=== PATIENT | male | born 1990 | race Caucasian/White ===

== ENCOUNTER 2018-07-20 01:22 | Emergency (ER) | payer OTHER ==
[~2018-07-20] VITALS: Ht 175.3 cm; Wt 72.0 kg
[2018-07-20] MEDS ORDERED: normal saline 1000ML IV soln IVB ONE ×3 (01:25→02:55)
[2018-07-20] MEDS ORDERED: diphenhydrAMINE 50 mg/ml inj IV ONE (01:25)
[2018-07-20] MEDS ORDERED: LORazepam 2 mg/ml vial IV ONE (01:25)
[2018-07-20] MEDS ORDERED: metoclopramide 5 mg/ml inj IV ONE (01:25)
[2018-07-20 02:07] LABS: BASOPHILS % (AUTO) 0.2 % (0-1); EOSINOPHILS % (AUTO) 0 % (0-6); HEMATOCRIT 44.9 % (42.0-52.0); HEMOGLOBIN 15.5 g/dl (14.0-17.9); LYMPHOCYTES # (AUTO) 1.8 X10'3 (1.1-4.8); LYMPHOCYTES % (AUTO) 10.5 % (21-51); MEAN CORPUSCULAR HEMOGLOBIN 30.7 PG (27.0-31.0); MEAN CORPUSCULAR HGB CONC 34.5 g/dL (33.0-36.5); MEAN CORPUSCULAR VOLUME 89.1 FL (78-98); MEAN PLATELET VOLUME 9.1 FL (7.4-10.4); MONOCYTES # (AUTO) 0.9 X10'3 (0-0.9); MONOCYTES % (AUTO) 5.3 % (2-12); NEUTROPHILS # (AUTO) 14.2 X10'3 (1.8-7.7); PLATELET COUNT 240 X10'3 (140-440); RED BLOOD COUNT 5.04 X10'6 (4.70-6.10); RED CELL DISTRIBUTION WIDTH 13.4 % (11.5-14.5)
[2018-07-20 02:18] LABS: ALANINE AMINOTRANSFERASE 33 U/L (12-78); ALBUMIN 5.1 G/DL (3.4-5.0); ALBUMIN/GLOBULIN RATIO 1.4 (1.1-1.5); ALKALINE PHOSPHATASE 75 IU/L (46-116); ANION GAP 16 (8-16); ASPARTATE AMINO TRANSFERASE 45 U/L (10-37); BILIRUBIN,TOTAL 1.1 MG/DL (0.1-1.0); BLOOD UREA NITROGEN 19 MG/DL (7-18); BUN/CREATININE RATIO 13.9 (5.4-32.0); CALCIUM 9.8 MG/DL (8.5-10.1); CHLORIDE 97 MMOL/L (99-107); CREATININE 1.37 MG/DL (0.60-1.10); GLUCOSE 164 MG/DL (70-104); LIPASE 71 U/L (73-393); POTASSIUM 3.8 MMOL/L (3.5-5.1); SODIUM 137 MMOL/L (135-145); TOTAL CARBON DIOXIDE 24.2 MMOL/L (24-32); TOTAL PROTEIN 8.8 G/DL (6.4-8.2); eGFR 62 ML/MIN
[2018-07-20] MEDS ORDERED: haloperidol lactate 5mg/ml inj IM ONE (02:55)
[2018-07-20] MEDS ORDERED: ONDA4TAB12 PO (05:08)
[2018-07-20 05:31] VITALS: BP 119/68
== END 2018-07-20 05:34 | disposition home or self-care (01) ==
LOC: ER 01:23
DX: R11.2 Nausea with vomiting, unspecified (principal); R10.13 Epigastric pain; F14.90 Cocaine use, unspecified, uncomplicated; Z60.2 Problems related to living alone; Z88.6 Allergy status to analgesic agent; Z79.899 Other long term (current) drug therapy
CPT/HCPCS: 36415; 80053; 83690; 85025; 96361; 96372; 96374; 96375; 99283; J1200; J1630; J2060; J2765; J7030

== ENCOUNTER 2020-06-04 21:16 | Emergency (ER) | payer MEDICAID ==
[~2020-06-04] VITALS: Ht 177.8 cm; Wt 70.5 kg
[~2020-06-04 21:16] MED LIST: ONDA4TAB12 PO
[2020-06-04] MEDS ORDERED: hydrocortisone 1% OINTMENT 30gm tube TP STA (21:38)
[2020-06-04] MEDS ORDERED: triamcinolone acetonide 40mg/ml inj IM ONE (21:40)
[2020-06-04 21:41] VITALS: BP 109/78
[2020-06-04] MEDS ORDERED: HYDR28CR14 TOP (21:56)
[2020-06-04] MEDS ORDERED: PRED10TA PO (21:57)
== END 2020-06-04 22:10 | disposition home or self-care (01) ==
LOC: ER 21:17
DX: L23.7 Allergic contact dermatitis due to plants, except food (principal); F14.90 Cocaine use, unspecified, uncomplicated; Z86.69 Personal history of other diseases of the nervous system and sense organs; Z60.2 Problems related to living alone; Z88.6 Allergy status to analgesic agent; Z88.8 Allergy status to other drugs, medicaments and biological substances
CPT/HCPCS: 96372; 99283; J3301